=== PATIENT | female | born 1950 | race Two or more races ===

== ENCOUNTER 2018-05-05 07:00 | Day surgery (SDC) | payer OTHER ==
[~2018-05-05] VITALS: Ht 165.1 cm; Wt 72.6 kg
[~2018-05-05 07:00] MED LIST: INDAPAMIDE1.25 MG; INDAPAMIDE1.25 MG PO; LISINOPRIL10 MG PO; LISINOPRIL5 MG; VOLTAREM 50 MG PO; ZYRTEC10 MG PO
== END 2018-05-06 08:00 | disposition home or self-care (01) ==
LOC: CIR.AMB 07:00 → SURH 07:00 → EDSTATUS 08:15 → O/R 10:51 → SURH 10:51 → CIR.AMB 05-06 08:00 → O/R 05-06 13:14 → SURH 05-06 13:14
DX: C50.011 Malignant neoplasm of nipple and areola, right female breast (principal)

== ENCOUNTER → 2019-04-04 | Outpatient (CLI) | payer OTHER | END | disposition home or self-care (01) | LOC: SONOGRAMA 09:48 | DX: E04.2 Nontoxic multinodular goiter (principal) ==

== ENCOUNTER 2024-01-11 07:30 | Outpatient (CLI) | payer OTHER | END 2024-01-11 07:31 | disposition home or self-care (01) | LOC: NUCLEAR 07:30 | PROVIDERS: ATTEND Internal Medicine | DX: I20.9 Angina pectoris, unspecified (principal) | CPT/HCPCS: 78452; 93017; A9500 ==

== ENCOUNTER 2024-05-20 09:12 | Emergency (ER) | payer OTHER ==
[~2024-05-20] VITALS: Ht 160 cm; Wt 72.6 kg
[2024-05-20] MEDS ORDERED: ZETIA10 MG (09:15)
[2024-05-20] MEDS ORDERED: COZAAR100 MG (09:15)
[2024-05-20] MEDS ORDERED: GUAIFENESIN 200 MG/10 ML BLIST.PACK PO ONE ×2 (12:15→12:18)
[2024-05-20 12:48] LABS: HEMATOCRIT 40.8 % (36.0-45.00); HEMOGLOBIN 13.7 g/dL (12.0-15.00); MEAN CELL VOLUME 82.4 fL (80.00-100.00); MEAN CORPUSCULAR HEMOGLOBIN 27.6 pg (27.00-32.0); MEAN CORPUSCULAR HGB CONC 33.5 g/dl (32.0-36.0); PLATELET COUNT 380 K/uL (150-450); RED BLOOD COUNT 4.96 M/uL (4.00-6.00); RED CELL DISTRIBUTION WIDTH 14.8 % (11.5-14.5)
== END 2024-05-20 13:55 ==
LOC: ER 09:13
PROVIDERS: General Practice
DX: B34.9 Viral infection, unspecified (principal); J04.0 Acute laryngitis; R05.9 Cough, unspecified; Z20.822 Contact with and (suspected) exposure to COVID-19; I10 Essential (primary) hypertension

== ENCOUNTER 2024-08-04 09:01 | Emergency (ER) | payer OTHER ==
[~2024-08-04] VITALS: Ht 160 cm; Wt 73.5 kg
[~2024-08-04 09:01] MED LIST changes: +COZAAR100 MG; +ZETIA10 MG
[2024-08-04] MEDS ORDERED: HYDROCODONE/CHLORPHEN P-STIREX 5 ML ML PO STA (09:40)
== END 2024-08-04 11:06 | disposition home or self-care (01) ==
LOC: ER 09:03
DX: U07.1 COVID-19 (principal); R53.81 Other malaise

== ENCOUNTER → 2025-09-24 | Emergency (ER) | payer OTHER ==
[~2025-09-24] VITALS: Ht 160 cm; Wt 73.9 kg
[~2025-09-24] MED LIST changes: +ACETAMINOPHEN 500 MG GEL..CAP PO ONE; +BENZONATATE 100 MG CAPSULE PO ONE; +GUAIFENESIN 200 MG/10 ML BLIST.PACK PO ONE
[2025-09-24 10:53] LABS: COVID-19 AG NEGATIVE (NEGATIVE)
[2025-09-24 10:59] LABS: BASO % 0.4 % (0.1-1.2); EOS # 0.23 (0.04-0.54); EOS % 3.3 % (0.7-7.0); LYMPH # 1.36 (1.18-3.74); LYMPH % 19.3 % (19.3-53.1); MEAN PLATELET VOLUME 11.40 fl (9.4-12.4); MONO # 0.73 (0.24-0.82); MONO % 10.4 % (4.7-12.5); NEUT # 4.68 (1.56-6.13); NEUT % 66.5 % (34.0-71.1); RED CELL DISTRIBUTION WIDTH 14.0 % (11.6-14.4)
== END | disposition home or self-care (01) ==
LOC: ER 07:44
PROVIDERS: General Practice
DX: J11.1 Influenza due to unidentified influenza virus with other respiratory manifestations (principal); R05.8 Other specified cough; R53.1 Weakness; I10 Essential (primary) hypertension; E03.8 Other specified hypothyroidism; Z20.822 Contact with and (suspected) exposure to COVID-19